=== PATIENT | male | born 1965 | race Caucasian/White ===

== ENCOUNTER 2025-05-31 18:14 | Inpatient (IN) | payer OTHER ==
[~2025-05-31] VITALS: Ht 185.4 cm; Wt 96.8 kg
[2025-05-31 18:59] LABS: BASOPHILS % 0.7 % (0.0-2.0); EOSINOPHILS % 1.7 % (0.0-5.0); HEMATOCRIT. 44.5 % (42.0-52.0); HEMOGLOBIN. 14.9 g/dL (14.0-18.0); LYMPHOCYTES % 36.6 % (20.0-50.0); MEAN PLATELET VOLUME 7.4 fl (7.4-10.4); MONOCYTES % 9.7 % (2.0-8.0); NEUTROPHILS % 51.3 % (40.0-76.0); PLATELET 201 x1000/uL (130-400); RED BLOOD CELL COUNT 5.12 mill/uL (4.7-6.1); RED CELL DISTRIBUTION WIDTH 14.2 % (11.6-14.6)
[2025-05-31] MEDS: ACYCLOVIR 400 MG TABLET PO ONE (19:15)
[2025-05-31 19:19] LABS: CREATININE 1.5 mg/dL (0.6-1.3)
[2025-05-31 19:20] LABS: ETHANOL BLOOD < 10 mg/dL (<10); UREA NITROGEN BLOOD 13 mg/dL (9-23)
[2025-05-31 19:21] LABS: ASPARTATE AMINOTRANSFERASE 24 IU/L (<34); BILIRUBIN DIRECT < 0.1 mg/dL (<=3.0)
[2025-05-31 19:22] LABS: BILIRUBIN TOTAL 0.4 mg/dL (0.1-1.0); PROTEIN TOTAL 6.9 g/dL (6.0-8.3)
[2025-05-31 19:28] LABS: INR 1.0
[2025-05-31] MEDS: PREDNISONE 20MG TABLET PO ONE (19:42)
[2025-05-31] MEDS: ACYCLOVIR 400 MG TABLET PO SCH (19:43)
[2025-05-31 20:09] LABS: CLARITY URINE CLEAR (CLEAR); COLOR URINE YELLOW (YELLOW); GLUCOSE URINE NEGATIVE (NEGATIVE); KETONES URINE TRACE (NEGATIVE); LEUKOCYTE ESTERASE URINE NEGATIVE (NEGATIVE); NITRITE URINE NEGATIVE (NEGATIVE); OCCULT BLOOD URINE NEGATIVE (NEGATIVE); PH URINE 7.5 (4.5-8.0); PROTEIN URINE NEGATIVE (NEGATIVE); SPECIFIC GRAVITY URINE 1.070 (1.005-1.030); UROBILINOGEN URINE 1.0 E.U./dL (0.2-1.0)
[2025-05-31 20:33] LABS: *AMPHETAMINES SCREEN URINE NEGATIVE (NEGATIVE); *BARBITURATES SCREEN URINE NEGATIVE (NEGATIVE); *BENZODIAZEPINES SCREEN URINE NEGATIVE (NEGATIVE); *COCAINE SCREEN URINE NEGATIVE (NEGATIVE); CANNABINOID URINE SCREEN NEGATIVE (NEGATIVE); METHADONE URINE SCREEN NEGATIVE (NEGATIVE); OPIATES URINE SCREEN NEGATIVE (NEGATIVE); PHENCYCLIDINE URINE SCREEN NEGATIVE (NEGATIVE)
[2025-05-31 20:34] LABS: ECSTASY MDMA SCREEN URINE NEGATIVE (NEGATIVE)
[2025-05-31] MEDS ORDERED: IPRATROPIUM/ALBUTEROL 0.5-3(2.5)MG/3ML NEB NEB PRN (21:45)
[2025-05-31] MEDS ORDERED: HYDROCODONE/ACETAMINOPHEN 5/325MG TABLET PO PRN (21:45)
[2025-05-31] MEDS ORDERED: ACETAMINOPHEN 325MG TABLET PO PRN (21:45)
[2025-05-31] MEDS ORDERED: MAGNESIUM/ALUMINUM HYDROXIDE/SIMETHICONE 30ML UDC PO PRN (21:45)
[2025-05-31] MEDS ORDERED: ZOLPIDEM TARTRATE 5MG TABLET PO PRN (21:45)
[2025-05-31] MEDS ORDERED: ONDANSETRON HCL 4MG/2ML INJ IV PRN (21:45)
[2025-05-31] MEDS ORDERED: CLONIDINE 0.1MG TABLET PO PRN (21:45)
[2025-05-31] MEDS: IOHEXOL-350 100 ML BOTTLE ONE (22:20)
[2025-05-31 23:00] VITALS: BP 136/87; PULSE 73; RESP 18; TEMP 36.2512
[2025-06-01 06:48] LABS: BASOPHILS % 0.2 % (0.0-2.0); EOSINOPHILS % 0.1 % (0.0-5.0); HEMATOCRIT. 44.2 % (42.0-52.0); HEMOGLOBIN. 14.8 g/dL (14.0-18.0); LYMPHOCYTES % 14.5 % (20.0-50.0); MEAN PLATELET VOLUME 8.5 fl (7.4-10.4); MONOCYTES % 1.0 % (2.0-8.0); NEUTROPHILS % 84.2 % (40.0-76.0); PLATELET 208 x1000/uL (130-400); RED BLOOD CELL COUNT 5.09 mill/uL (4.7-6.1); RED CELL DISTRIBUTION WIDTH 14.1 % (11.6-14.6)
[2025-06-01 06:59] LABS: TRIGLYCERIDE 116.0 mg/dL (0-150)
[2025-06-01 07:00] LABS: LDL CHOLESTEROL 139.0 mg/dL (5-100)
[2025-06-01 07:08] LABS: CREATININE 1.3 mg/dL (0.6-1.3); UREA NITROGEN BLOOD 11.0 mg/dL (9-23)
[2025-06-01 08:00] VITALS: BP 139/76; PULSE 85; RESP 20; TEMP 36.7
[2025-06-01] MEDS: ASPIRIN 81MG EC TABLET PO SCH (08:16)
[2025-06-01] MEDS: CLOPIDOGREL 75MG TABLET PO SCH (08:17)
[2025-06-01] MEDS: ENOXAPARIN 40MG/0.4ML SYR SUBCUT SCH (08:18)
[2025-06-01] MEDS: PANTOPRAZOLE SODIUM 40 MG/VIAL IV SCH (08:49)
[2025-06-01 16:00] VITALS: BP 121/87; PULSE 70; RESP 17; TEMP 36.4
[2025-06-01 20:00] VITALS: BP 126/79; PULSE 66; RESP 16; TEMP 37.1; O2SAT 95
[2025-06-01] MEDS: ATORVASTATIN CALCIUM 40MG TABLET PO SCH (21:30)
[2025-06-02] VITALS: BP 109/77; PULSE 82; RESP 17; TEMP 37.3; O2SAT 95
[2025-06-02 04:00] VITALS: BP 122/77; PULSE 75; RESP 17; TEMP 37.3; O2SAT 95
[2025-06-02 06:29] LABS: BASOPHILS % 0.5 % (0.0-2.0); EOSINOPHILS % 1.3 % (0.0-5.0); HEMATOCRIT. 42.3 % (42.0-52.0); HEMOGLOBIN. 14.3 g/dL (14.0-18.0); LYMPHOCYTES % 42.5 % (20.0-50.0); MEAN PLATELET VOLUME 8.2 fl (7.4-10.4); MONOCYTES % 7.4 % (2.0-8.0); NEUTROPHILS % 48.3 % (40.0-76.0); PLATELET 193 x1000/uL (130-400); RED BLOOD CELL COUNT 4.86 mill/uL (4.7-6.1); RED CELL DISTRIBUTION WIDTH 14.1 % (11.6-14.6)
[2025-06-02 06:58] LABS: CREATININE 1.5 mg/dL (0.6-1.3); UREA NITROGEN BLOOD 16.0 mg/dL (9-23)
[2025-06-02 08:00] VITALS: BP 121/82; PULSE 73; RESP 18; TEMP 36.7; O2SAT 99
[2025-06-02] MEDS ORDERED: CLOP-31 PO (10:46)
[2025-06-02] MEDS ORDERED: ASPI-1406 PO (10:46)
[2025-06-02] MEDS ORDERED: LIP40 PO (10:46)
[2025-06-02 12:00] VITALS: BP 125/85; PULSE 62; RESP 18; TEMP 36.6; O2SAT 98
[2025-06-02 14:18] VITALS: BP 117/76; PULSE 63; TEMP 97.8; O2SAT 97
== END 2025-06-02 15:20 | disposition home or self-care (01) | DRG 74 ==
LOC: ER 18:14 → EDBEDREQTM 19:49 → 5WST 20:43 → EDBEDREQ 20:55 → EDBEDREQTM 20:55 → ENRESERV 22:35
PROVIDERS: ADMIT Internal Medicine; ATTEND Internal Medicine
DX: G51.0 Bell's palsy (principal); I10 Essential (primary) hypertension; E86.0 Dehydration; Z79.02 Long term (current) use of antithrombotics/antiplatelets; Z79.82 Long term (current) use of aspirin
CPT/HCPCS: 36415; 70496; 70498; 71045; 80048; 80061; 80076; 80305; 80320; 81003; 83036; 83735; 84443; 85025; 93005; 93306; 93970; 97162; 99291; A4606; J1650; J2470; J7512; Q9967; G0480